=== PATIENT | female | born 1960 | race Hispanic/Latino ===

== ENCOUNTER 2025-05-26 06:17 | Day surgery (SDC) | payer OTHER ==
[2025-05-24 13:29] LABS: IMMATURE GRANULOCYTE ABSOLUTE 0.01 K/uL (0-1); NUCLEATED RED BLOOD CELLS 0.0 % (0.0-0.19); PLATELET COUNT (AUTO) 234 K/uL (130-400); RED BLOOD CELL COUNT(AUTO) 5.30 MIL/uL (4.00-5.50); RED CELL DISTRIBUTION WIDTH 15.7 % (11.0-15.5); WHITE BLOOD COUNT (AUTO) 7.5 K/uL (4.8-10.8)
[2025-05-24 13:38] LABS: CREATININE 0.7 mg/dL (0.5-1.0); GLOMERULAR FILTR. RATE CALC 97.0 mL/min (>90); GLUCOSE,RANDOM 131.0 mg/dL (70-105); SODIUM SERUM 142.0 mmol/L (136-145); UREA NITROGEN, BLOOD 12.0 mg/dL (7-18)
[2025-05-24 13:47] VITALS: BP 166/79; PULSE 71; RESP 18; TEMP 98.2
[2025-05-24 13:49] LABS: INR 1.16 (0.85-1.15)
--- NOTE | 2025-05-24 21:45 | EKG ---
[facility] Test Date: 2025-05-24 Test Time: 14:14:40 Pat Name: JASMINE FRANCIS Department: [facility] Room: Gender: F Application Internship: [id number] : 1960 Requested By: JOSE DANIEL GARCIA Order Number: [id number] Reading MD: Jose Daniel Devi Measurements Intervals [place] Rate: 80 P: 36 [place]: 161 QRS: -19 QRSD: 98 T: 46 QT: 403 QTc: 465 Interpretive Statements Sinus rhythm No previous ECG available for comparison Electronically Signed On 05-25-2025 07:17:21 HOME CARE PROVIDER by Jose Daniel Devi Please click the below link to view image of tracing.
[~2025-05-26] VITALS: Ht 154.9 cm; Wt 93.9 kg
[2025-05-26] VITALS (17 sets, daily range): BP systolic 139–166; BP diastolic 59–92; PULSE 71–79; RESP 14–18; TEMP 97–97.7
[2025-05-26] MEDS ORDERED: LACTATED RINGERS 1000ML 1,000 ML IV ONE (06:48)
[2025-05-26] MEDS ORDERED: MIDAZOLAM HCL 1 MG/ML 2ML VIAL ONE (07:02)
[2025-05-26] MEDS ORDERED: PROMETHAZINE HCL 25 MG/ML 1ML AMPULE IM PRN (07:30)
[2025-05-26] MEDS: INDOCYANINE GREEN 25 MG VIAL IJ ONE (07:57)
[2025-05-26] MEDS ORDERED: SUGAMMADEX SODIUM 200 MG/2 ML VIAL IV ONE (10:14)
--- NOTE | 2025-05-26 12:00 | NUR ---
POST-OP SURGICAL MID ABDOMEN 4 INCISIONS. NO ACTIVE BLEEDING OR DRAINAGE. NO REDNESS OR SWELLING NOTED. STOMACH SOFT TO TOUCH. PATIENT TABLE TO WIGGLE FINGERS. DERMABOND TO 4 INCISIONS. REINFORCED INSTRUCTIONS NO STRAWS, WALKING WITH TO PASS [place] AND TO NOT HOLD IN GAS TO BURP OR FART. PATIENT AND FAMILY VERBALIZED UNDERSTANDING.
--- NOTE | 2025-05-26 13:14 | PN ---
GENERAL SURGERY PROGRESS NOTE Date/Time Patient Seen: [05/26/2025 at 1:10 p.m.] Problem List: [ ] Interval History: [Postop day 0. Pain tolerable with the p.r.n. medication ] Physical Examination: GENERAL: [No acute distress.] ABD: [Incisions clean, dry and intact, Dermabond in place Vital Signs (last 8hr) Date Time Temp Pulse Resp B/P (MAP) Pulse Ox O2 Delivery O2 Flow Rate FiO2 05/26/25 12:30 97.7 75 15 140/75 99 Room Air 05/26/25 12:15 79 14 141/71 96 Room Air 05/26/25 12:00 97.5 77 15 143/78 96 Room Air 05/26/25 11:57 97.2 72 15 147/60 97 Room Air 05/26/25 11:52 71 16 140/63 97 Room Air 05/26/25 11:47 74 16 145/67 96 Room Air 05/26/25 11:42 78 15 142/67 95 Room Air 05/26/25 11:37 72 14 142/71 96 Room Air 05/26/25 11:32 72 14 142/63 97 Nasal Cannula 1.0 05/26/25 11:27 73 15 148/70 96 Nasal Cannula 1.0 05/26/25 11:22 72 14 145/71 97 Nasal Cannula 1.0 05/26/25 11:17 71 14 147/74 96 Nasal Cannula 2.0 05/26/25 11:12 78 15 150/69 98 Nasal Cannula 2.0 05/26/25 11:07 76 16 151/62 99 Nonrebreathing Mask 10.0 05/26/25 11:02 72 14 142/67 100 Nonrebreathing Mask 10.0 05/26/25 10:57 97.0 74 18 139/59 100 Nonrebreathing Mask 10.0 05/26/25 06:30 97.7 73 17 166/92 98 Room Air 21 Laboratory: [ ] Diagnostics / Radiology: [Copy/Paste Echos/Imaging Report here] Impression and Plan: [Plan is for discharge home in the next few hours as long as patient tolerating p.o., ambulatory and pain under control. Discussed with the patient and family. They understand and agree. ] ESTHER GARCIA PAC May 26, 2025 13:14
--- NOTE | 2025-05-26 13:26 | OP ---
Operative Note: DATE OF PROCEDURE: 05/26/25 SURGEON: JOSE DANIEL GARCIA MD [facility] TUTOR: Jacek Garcia MD p.a. C ANESTHESIA: General and local ANESTHESIOLOGIST/MEMS DEVICE SCIENTIST: [facility] anesthesia team PREOPERATIVE DIAGNOSIS: Symptomatic cholelithiasis with chronic cholecystitis POSTOPERATIVE DIAGNOSIS: As above SYNOPSIS: Cholecystectomy with IC green cholangiogram performed without incident PROCEDURE: Robotic assisted cholecystectomy with IC green intraoperative cholangiogram ESTIMATED BLOOD LOSS: Minimal, less than 30 cc INDICATIONS: As above DESCRIPTION OF PROCEDURE: After standard precautions and preparations were undertaken a Veress needle and optical trocar were used to enter the abdominal cavity. All other instruments were placed under direct vision. The robotic system was docked in the standard fashion. We began our dissection by elevating the gallbladder cephalad and working around the infundibulum. Eventually we are able to achieve a critical view of safety b y identifying a single cystic duct and single cystic artery entering the gallbladder infundibulum. We confirmed this anatomy utilizing IC green and firefly visual technology. With this technology we are able to eliminate the ductal system tracing from the liver through the common hepatic and common bile ducts and the junction with the cystic duct. Once the anatomy was confirmed we felt comfortable placing our clips and dividing the structures. We used monopolar cautery to remove the gallbladder from the gallbladder fossa attachments and then placed the specimen in an Endo-Catch bag. Specimen was removed from the abdominal cavity and the fascia was closed to prevent future hernia. The case took double the typical operative time due to the patient's chronic cholecystitis. The inflammation caused significant edema in the area of the gallbladder as well as adhesive attachments to nearby structures. We were satisfied at the end of the procedure the gallbladder was safely removed and that there were no injuries to surrounding structures. JOSE DANIEL GARCIA MD May 26, 2025 13:26
== END 2025-05-26 12:53 | disposition home or self-care (01) ==
LOC: DAH 06:17
PROVIDERS: ATTEND Surgery
DX: K80.10 Calculus of gallbladder with chronic cholecystitis without obstruction (principal); I10 Essential (primary) hypertension; E78.5 Hyperlipidemia, unspecified; E11.9 Type 2 diabetes mellitus without complications; K76.0 Fatty (change of) liver, not elsewhere classified; B96.81 Helicobacter pylori [H. pylori] as the cause of diseases classified elsewhere; Z79.01 Long term (current) use of anticoagulants; Z79.899 Other long term (current) drug therapy
CPT/HCPCS: 80048; 85025; 85610; 85730; 86850; 86900; 86901; 36415; 93005; 47563; 88304; A4663; J7030; A4215 ×2; J7120; J3010 ×3; J2270; J0665; J3490 ×3; J2250; J2704; J2371; J0690; A4649; A4930; A4213; A4222; A4221; A4216; A4223 ×2; A4600